=== PATIENT | female | born 1975 | race Caucasian/White ===

== ENCOUNTER → 2017-03-20 | Outpatient (CLI) | payer OTHER ==
[~2017-03-20] MED LIST: LEVO50TA4 PO; PARO10TA2 PO
[2017-03-20 11:04] LABS: FREE T4 0.98 NG/DL (0.76-1.46)
== END ==
LOC: CLAB 09:43
PROVIDERS: ATTEND Family Medicine Sports Medicine
DX: E03.9 Hypothyroidism, unspecified (principal)
CPT/HCPCS: 36415; 84439; 84443